=== PATIENT | female | born 1965 | race Caucasian/White ===

== ENCOUNTER 2016-09-16 05:42 | Emergency (ER) | payer OTHER ==
[~2016-09-16] VITALS: Ht 167.6 cm; Wt 104.3 kg
--- NOTE | 2016-09-16 06:01 | ED CARDIAC/CP/PALPITATIONS ---
History of Present Illness General Chief Complaint: Chest Pain Stated Complaint: CHEST PAIN Source: patient, family, old records Exam Limitations: no limitations Vital Signs & Intake/Output Vital Signs & Intake/Output Vital Signs Date Time Temp Pulse Resp B/P B/P Pulse O2 O2 Flow FiO2 Mean Ox Delivery Rate 09/16 0532 96.3 58 18 134/80 96 Room Air 09/16 0555 98 Room Air 09/16 0552 96.8 57 18 148/82 98 Room Air Allergies Coded Allergies: No Known Allergies (09/16/16) Reconcile Medications Buspirone HCl 15 MG TABLET 1 TAB PO BID TREMORS/ ANXIETY (Reported) Escitalopram Oxalate 20 MG TABLET 1 TAB PO DAILY DEPRESSION (Reported) Levothyroxine Sodium 25 MCG TABLET 1 TAB PO DAILY THYROID (Reported) Propranolol HCl 40 MG TABLET 1 TAB PO BID "TREMORS" (Reported) Risperidone (Risperdal) 0.25 MG TABLET 1 TAB PO QPM (Reported) Triage Note: TRIAGE: PATIENT TO ER FROM HOME REPORTING L CHEST PAIN W/ INTERMITTENT NAUSEA AND "HOT FLASHES BUT THEN I GET COLD" SINCE 0450 THIS AM. PATIENT DENIES ABD PAIN/V/D, "JUST +N." EKG COMPLETED IN TRIAGE BY BHUPINDER WEBB. Triage Nurses Notes Reviewed? yes HPI: Patient states that she got up to go to the bathroom just before 5:00 this morning. When she got back to bed she began to feel a substernal throbbing sensation. The sensation radiating up her throat. She then began to get episodes of feeling lightheaded and like she was getting hot flashes. Flushes within the follow-up by feeling very cold. Patient felt very nervous so she got up and woke her up and they sat watching TV for a while. When the symptoms did not subside she decided to come into the emergency department for evaluation. Upon presentation to the emergency department she is pain-free. Rates the throbbing sensation at 4 out of 10. Radiation as noted above. There are no aggravating or mitigating factors. She last saw Dr. Galvan 9 months ago. (YU MATHIS,ADY Low) Past History Travel History Traveled to [place] past 21 day No Medical History Any Pertinent Medical History? 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 No (YU MATHIS,ADY Low) Review of Systems Review of Systems Constitutional: Reports: no symptoms. EENTM: Reports: no symptoms. Respiratory: Reports: no symptoms. Cardiovascular: Reports: see HPI, chest pain. GI: Reports: see HPI, nausea. Genitourinary: Reports: no symptoms. Musculoskeletal: Reports: no symptoms. Skin: Reports: no symptoms. Neurological/Psychological: Reports: see HPI. Hematologic/Endocrine: Reports: no symptoms. Immunologic/Allergic: Reports: no symptoms. All Other Systems: Reviewed and Negative (YU MATHIS,ADY Low) Physical Exam Physical Exam General Appearance: well developed/nourished, alert, awake, anxious, mild distress Head: atraumatic, normal appearance Ears, Nose, Throat: normal pharynx, normal ENT inspection, hearing grossly normal Neck: normal inspection, supple, full range of motion, NO JVD Respiratory: normal breath sounds, chest non-tender, no respiratory distress, lungs clear Cardiovascular: regular rate/rhythm, normal peripheral pulses, systolic murmur Gastrointestinal: normal bowel sounds, soft, non-tender Back: normal inspection, normal range of motion Extremities: normal inspection, normal capillary refill, normal range of motion, no edema Neurologic/Psych: no motor/sensory deficits, awake, alert, oriented x 3, normal mood/affect Skin: intact, normal color, warm/dry Lymphatic: no anterior cervical salvador Core Measures ACS in differential dx? Yes ASA ordered for poss ACS? Yes-ordered Severe Sepsis Present: No Septic Shock Present: No All Positive = PERC Ruled Out: Positive: age < 50 years, heart rate < 100 bpm, O2 sat > 94%, no hemoptysis, no hormone use, no prior DVT or PE, no unilateral leg swellin, no surgery/trauma w/ in 4w. 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 [employer] 09/16 556 Active TROPONIN LEVEL 09/16 556 Complete COMPREHENSIVE METABOLIC PANEL 09/16 556 Complete CBC WITHOUT DIFFERENTIAL 09/16 556 Complete EKG 09/16 542 Active Current Medications Sig/Rachid Start time Last Medication Dose Stop Time Status Admin Ondansetron HCl 4 MG ONCE ONE 09/16 599 CAN (Zofran) 09/16 600 Laboratory Tests 09/16/16905: Troponin I < 0.01, TSH 5.870 H 09/16/16708: TSH Cancelled 09/16/16599: Anion Gap 12, Estimated GFR 59 L, BUN/Creatinine Ratio 17.0, Glucose 93, Calcium 9.2, Total Bilirubin 0.7, AST 20, ALT 35, Alkaline Phosphatase 66, Troponin I < 0.01, Total Protein 6.7, Albumin 3.9, Globulin 2.8, Albumin/ Globulin Ratio 1.4, CBC w Diff NO MAN DIFF REQ, RBC 4.74, MCV 84.6, MCH 28.0, RDW 14.2, MPV 8.3, Gran % 59.4, Lymphocytes % 26.4, Monocytes % 5.9, Eosinophils % 7.8 H, Basophils % 0.5, Absolute Granulocytes 4.2, Absolute Lymphocytes 1.9, Absolute Monocytes 0.4, Absolute Eosinophils 0.6, Absolute Basophils 0, PUBS MCHC 33.1 Diagnostic Imaging: Viewed by Me: Radiology Read. Discussed w/RAD: Radiology Read. Initial ED EKG: NSR, no ST T wave changes Prior EKG: unchanged Rhythm Strip: normal sinus rhythm Hand-Off Endorsed To: ALETA FLORES MD Endorsed Time: 699 Pending: labs (YU MATHIS,ADY Low) Repeat EKG: unchanged Comments: 2nd troponin and EKG normal (ALETA FLORES MD) Departure Departure Condition: Stable Clinical Impression Primary Impression: Chest pain, unspecified Qualifiers: Chest pain type: other chest pain Qualified Code: R07.89 - Other chest pain Departure Forms: Customer Survey General Discharge Information (ADY NICHOLAS MD) Departure Time of Disposition: 932 Disposition: HOME OR SELF CARE Referrals: MERLIN CASTILLO APRN (PCP/Family) ANASTASIIA MATHIS PhD,RENZO Mayen (MARK MATHIS,ALETA) Critical Care Note Critical Care Note Critical Care Time: non-applicable (YU MATHIS,ADY Low)
[2016-09-16] MEDS ORDERED: PROPRANOLOL HCL40 M1 PO (06:02)
[2016-09-16] MEDS ORDERED: BUSPIRONE HCL15 M1 PO (06:02)
[2016-09-16] MEDS ORDERED: RISPERDAL0.25 M1 PO (06:02)
[2016-09-16] MEDS ORDERED: LEVOTHYROXINE25 MCG PO (06:02)
[2016-09-16] MEDS ORDERED: ESCITALOPRAM OX20 MG PO (06:03)
[2016-09-16 06:14] LABS: ABSOLUTE BASOPHIL COUNT 0 /CUMM (0.0-0.2); ABSOLUTE EOSINOPHIL COUNT 0.6 /CUMM (0.0-0.7); ABSOLUTE GRANULOCYTE CT 4.2 /CUMM (1.4-6.5); ABSOLUTE LYMPH COUNT 1.9 /CUMM (1.2-3.4); ABSOLUTE MONOCYTE COUNT 0.4 /CUMM (0.10-0.60); BASOPHIL % 0.5 % (0.0-2.0); EOSINOPHIL % 7.8 % (0-5); GRANULOCYTE % 59.4 % (42.2-75.2); HEMATOCRIT 40.1 % (37-47); MEAN CORPUSCULAR HGB CONC 33.1 G/DL (33.0-37.0); MEAN CORPUSCULAR VOLUME 84.6 FL (81.0-99.0); MEAN PLATELET VOLUME 8.3 FL (7.4-10.4); PLATELET COUNT 222 /CUMM (130-400); RBC DISTRIBUTION WIDTH 14.2 % (11.5-14.5); RED BLOOD CELL CT 4.74 /CUMM (4.20-5.40); WHITE BLOOD CELL COUNT 7.1 /CUMM (4.8-10.8)
--- NOTE | 2016-09-16 06:51 | RADIOLOGY REPORT ---
EXAMINATION: XR PORTABLE CHEST CLINICAL INFORMATION: Chest pain. COMPARISON: 07/14/2016 TECHNIQUE: Portable frontal view of the chest was obtained. FINDINGS: Cardiac leads overlie the chest. The lungs are well expanded. There is no focal consolidation, edema, or effusion. No pneumothorax. The cardiomediastinal silhouette is within normal limits. No acute osseous abnormality. IMPRESSION: No acute pulmonary findings.
[2016-09-16 10:59] VITALS: BP 130/77
== END 2016-09-16 11:07 ==
LOC: ERH 05:42
PROVIDERS: Emergency Medicine
DX: R07.2 Precordial pain (principal)
CPT/HCPCS: 93005; 93010; 96374; J2405